=== PATIENT | female | born 1975 | race Caucasian/White ===

== ENCOUNTER 2019-04-24 15:09 | Emergency (ER) | payer SELFPAY ==
[2019-04-24 15:15] VITALS: BP 135/88
--- NOTE | 2019-04-24 15:59 | ER Document Report ---
ED Extremity Problem, Lower - General Chief Complaint: Knee Pain Stated Complaint: KNEE AND ANKLE PAIN Time Seen by Provider: 04/24/19 15:50 Primary Care Provider: AZUL LOAIZA JR, DO [ACTIVE PROVISIONAL STAFF] - Follow up in 3-5 days (for ortho follow up) TRAVEL OUTSIDE OF THE [place] IN LAST 30 DAYS: No - HPI Notes: 44-year-old female to the emergency department with complaints of left foot and ankle pain for over 1 year and left knee pain for the past several weeks. She states for the past year she has had pain in the back of her left ankle and into the foot. She states that she notices the pain worse when she is first putting pressure on the foot in the morning and after she has been sitting for long periods of time. She has been taking Tylenol for the pain with relief but she states that she continues to have to take it most days because of the pain. She states she tried ice and brace the foot and ankle without any relief. She states she also tried inserts into her she is again without any relief. She has not seen an orthopedist about this. She also states that she has been having some knee pain for the past several weeks but 2 nights ago she fell striking her left knee on the stairs. She states that since then her pain in her knee has gotten significantly worse. She denies any other injuries or any other complaints. - Related Data Allergies/Adverse Reactions: No Known Allergies Allergy (Verified 04/24/19 15:51) Past Medical History - General Information source: Patient - Social History Smoking Status: Never Smoker Chew tobacco use (# tins/day): No Frequency of alcohol use: None Drug Abuse: None Family History: Reviewed & Not Pertinent Patient has suicidal ideation: No Patient has homicidal ideation: No Review of Systems - Review of Systems Constitutional: denies: Chills, Fever EENT: No symptoms reported Cardiovascular: denies: Chest pain, Palpitations, Syncope Respiratory: denies: Cough, Short of breath Gastrointestinal: denies: Abdominal pain, Diarrhea, Nausea, Vomiting Musculoskeletal: See HPI, Joint pain, Joint swelling Skin: No symptoms reported Neurological/Psychological: No symptoms reported -: Yes All other systems reviewed and negative Physical Exam - Vital signs Vitals: Temp Pulse Resp BP Pulse Ox 97.3 F 81 20 135/88 H 99 04/24/19 15:13 04/24/19 15:13 04/24/19 15:13 04/24/19 15:13 04/24/19 15:13 Interpretation: Normal - General General appearance: Appears well, Alert - HEENT Head: Normocephalic, Atraumatic Eyes: Normal Pupils: PERRL - Respiratory Respiratory status: No respiratory distress Chest status: Nontender Breath sounds: Normal Chest palpation: Normal - Cardiovascular Rhythm: Regular Heart sounds: Normal auscultation Murmur: No - Abdominal Inspection: Normal Distension: No distension Bowel sounds: Normal Tenderness: Nontender Organomegaly: No organomegaly - Back Back: Normal, Nontender. No: Tender, Deformity/step-off, CVA tenderness, Vertebra tenderness - Extremities Notes: There is tenderness to palpation over the left knee joint with mild edema. There is no ecchymosis or evidence of deformity. Patient can ambulate on the knee but she limps. There is also mild tenderness to palpation along the Achilles of the left ankle and foot. There is mild pain with dorsiflexion of the left ankle as well. There is no edema or erythema. There is no skin brooks ges. DP pulses are intact and equal. She has 5 out of 5 strength in flexion and extension to bilateral lower extremities and 5 out of 5 strength in dorsi and plantar flexion in bilateral lower extremities. Cap refill is less than 2 seconds. - Neurological Neuro grossly intact: Yes Cognition: Normal Orientation: AAOx4 Tristen Coma Scale Eye Opening: Spontaneous Tristen Coma Scale Verbal: Oriented Tristen Coma Scale Motor: Obeys Commands [place] Coma Scale Total: 15 Speech: Normal Cranial nerves: Normal Cerebellar coordination: Normal Motor strength normal: LUE, RUE, LLE, RLE Additional motor exam normals: Equal belt cutter. No: Pronator drift Sensory: Normal - Psychological Associated symptoms: Normal affect, Normal mood - Skin Skin Temperature: Warm Skin Moisture: Dry Skin Color: Normal Course - Re-evaluation Re-evalutation: 04/24/19 Impression: Left knee sprain, left foot and ankle pain with high suspicion for an Achilles tendinitis/plantar fasciitis. Will Noah wrap the knee and placed on crutches to get relief for her knee since her fall. Will send home with pain medicines as well as a steroid Dosepak. We will have her follow with orthopedist given this is been ongoing in her foot and ankle for some time now. Patient agrees with the plan. - Vital Signs Vital signs: Temp Pulse Resp BP Pulse Ox 97.3 F 81 20 135/88 H 99 04/24/19 15:13 04/24/19 15:13 04/24/19 15:13 04/24/19 15:13 04/24/19 15:13 - Diagnostic Test Radiology reviewed: Image reviewed, Reports reviewed Discharge - Discharge Clinical Impression: Fall, Left knee sprain, Left ankle pain, Plantar fasciitis of left foot Condition: Stable Disposition: HOME, SELF-CARE Instructions: Use of Crutches ([facility]), Sprained Knee ([facility]) Additional Instructions: Follow up with orthopedist without fail. Take medicines as prescribed. Return if worse. Prescriptions: Methylprednisolone [Medrol Dosepack (4 mg/Tab) 21 Tab/Dosepak] 4 mg PO ASDIR PRN #21 tab.ds.pk PRN Reason: Tramadol HCl [Ultram 50 mg Tablet] 50 mg PO Q6H PRN #12 tab PRN Reason: Referrals: AZUL LOAIZA JR, DO [ACTIVE PROVISIONAL STAFF] - Follow up in 3-5 days (for ortho follow up)
--- NOTE | 2019-04-24 16:42 | RADIOLOGY REPORT (SQ) ---
EXAM DESCRIPTION: FOOT LEFT COMPLETE COMPLETED DATE/TIME: 04/24/2019 4:29 pm REASON FOR STUDY: foot pain COMPARISON: None. NUMBER OF VIEWS: Three views. TECHNIQUE: AP, lateral and oblique radiographic images acquired of the left foot. LIMITATIONS: None. FINDINGS: MINERALIZATION: Normal. BONES: No acute fracture or dislocation. No worrisome bone lesions. JOINTS: No effusions. SOFT TISSUES: No soft tissue swelling. No foreign body. OTHER: No other significant finding. IMPRESSION: NEGATIVE STUDY OF THE LEFT FOOT. NO RADIOGRAPHIC EVIDENCE OF ACUTE INJURY. TECHNICAL DOCUMENTATION: JOB ID: [id number] [employer]- All Rights Reserved Reading location - IP/workstation name: [email or web address]
--- NOTE | 2019-04-24 16:43 | RADIOLOGY REPORT (SQ) ---
EXAM DESCRIPTION: KNEE LEFT 4 VIEW COMPLETED DATE/TIME: 04/24/2019 4:29 pm REASON FOR STUDY: knee pain COMPARISON: None. NUMBER OF VIEWS: Four views. TECHNIQUE: AP, lateral, and both oblique radiographic images acquired of the left knee. LIMITATIONS: None. FINDINGS: MINERALIZATION: Normal. BONES: No acute fracture or dislocation. No worrisome bone lesions. JOINT: No effusion. SOFT TISSUES: No soft tissue swelling. No radio-opaque foreign body. OTHER: No other significant finding. IMPRESSION: NEGATIVE STUDY OF THE LEFT KNEE. NO RADIOGRAPHIC EVIDENCE OF ACUTE INJURY. TECHNICAL DOCUMENTATION: JOB ID: [id number] [employer]- All Rights Reserved Reading location - IP/workstation name: [email or web address]
--- NOTE | 2019-04-24 16:43 | RADIOLOGY REPORT (SQ) ---
EXAM DESCRIPTION: ANKLE LEFT COMPLETE COMPLETED DATE/TIME: 04/24/2019 4:29 pm REASON FOR STUDY: ankle pain COMPARISON: None. NUMBER OF VIEWS: Three views. TECHNIQUE: AP, lateral, and oblique radiographic images acquired of the left ankle. LIMITATIONS: None. FINDINGS: MINERALIZATION: Normal. BONES: No acute fracture or dislocation. No worrisome bone lesions. JOINTS: No effusions. SOFT TISSUES: No soft tissue swelling. No foreign body. OTHER: No other significant finding. IMPRESSION: NEGATIVE STUDY OF THE LEFT ANKLE. NO RADIOGRAPHIC EVIDENCE OF ACUTE INJURY. TECHNICAL DOCUMENTATION: JOB ID: [id number] [employer]- All Rights Reserved Reading location - IP/workstation name: [email or web address]
== END 2019-04-24 17:42 | disposition home or self-care (01) ==
LOC: ER 15:09
DX: S83.92XA Sprain of unspecified site of left knee, initial encounter (principal); W19.XXXA Unspecified fall, initial encounter; M72.2 Plantar fascial fibromatosis; M25.572 Pain in left ankle and joints of left foot; M79.672 Pain in left foot
CPT/HCPCS: 99283